=== PATIENT | male | born 1950 | race Caucasian/White ===

== ENCOUNTER 2023-10-10 08:00 | Outpatient (CLI) | payer MEDICARE, OTHER | END 2023-10-10 08:01 | disposition home or self-care (01) | LOC: LAB.N 08:00 | PROVIDERS: ATTEND Family Medicine | DX: U07.1 COVID-19 (principal) ==

== ENCOUNTER 2023-10-10 16:38 | Outpatient (CLI) | payer MEDICARE, OTHER ==
[2023-10-10 17:14] LABS: CALCIUM 9.8 mg/dL (8.5-10.3); CREATININE 1.4 mg/dL (0.6-1.3); POTASSIUM 4.4 mmol/L (3.5-4.5)
== END 2023-10-10 16:39 | disposition home or self-care (01) ==
LOC: LAB 16:38
PROVIDERS: ATTEND Family Medicine
DX: U07.1 COVID-19 (principal)
CPT/HCPCS: 36415; 80048